=== PATIENT | female | born 2000 | race African-American/Black ===

== ENCOUNTER 2024-11-30 18:36 | Emergency (ER) | payer MEDICAID ==
[~2024-11-30] VITALS: Ht 160 cm; Wt 68.0 kg
[2024-11-30 19:03] VITALS: O2SAT 100
[2024-11-30 19:41] VITALS: BP 127/81; PULSE 101; RESP 18; TEMP 36.6; O2SAT 98
== END 2024-11-30 21:07 | disposition left against medical advice (07) ==
LOC: ER 18:36
DX: M79.605 Pain in left leg (principal); Z53.21 Procedure and treatment not carried out due to patient leaving prior to being seen by health care provider